=== PATIENT | female | born 1995 | race Caucasian/White ===

== ENCOUNTER 2018-05-13 20:52 | Emergency (ER) | payer MEDICAID, OTHER ==
[~2018-05-13] VITALS: Ht 160 cm; Wt 87.0 kg
[2018-05-13] MEDS ORDERED: bacitracin 15gm ointment TP ONE (22:30)
[2018-05-13 22:46] VITALS: BP 108/72
== END 2018-05-13 22:50 | disposition home or self-care (01) ==
LOC: ER 20:53
DX: T23.212A Burn of second degree of left thumb (nail), initial encounter (principal); Z88.0 Allergy status to penicillin; Z88.2 Allergy status to sulfonamides; Z88.6 Allergy status to analgesic agent; X11.8XXA Contact with other hot tap-water, initial encounter; Y93.89 Activity, other specified; Y92.511 Restaurant or cafe as the place of occurrence of the external cause; Y99.9 Unspecified external cause status
CPT/HCPCS: 99282